=== PATIENT | female | born 1995 | race African-American/Black ===

== ENCOUNTER 2016-07-16 14:17 | Inpatient (IN) | payer OTHER ==
[~2016-07-16] VITALS: Ht 167.6 cm; Wt 96.9 kg
[2016-07-16] MEDS ORDERED: SODIUM CHLORIDE 0.9% 1000ML 1,000 ML IV STA (16:41)
[2016-07-16] MEDS ORDERED: DEXAMETHASONE SOD INJ 4 MG/ML VIAL IV STA (16:41)
[2016-07-16] MEDS ORDERED: AMPICILLIN/SULBACTAM SOD INJ 3,000 MG in SODIUM CHLORIDE 0.9% 100ML 100 ML IV ONE (16:45)
[2016-07-16] MEDS ORDERED: LIDOCAINE/EPINEPHRINE 1% 20 ML VIAL INFIL ONE (17:15)
[2016-07-16 17:56] LABS: BASO % 0.3 %; BASO ABS # 0.04 K/uL (0-0.2); COMPLETE YES; EOS % 0.5 %; HEMATOCRIT 40.5 % (37-47); IG% 0.2 %; LYMPH ABS # 3.28 K/uL (1.2-3.4); MEAN CELL VOLUME 86.7 fL (80-100); MEAN CORPUSCULAR HGB CONC 34.6 g/dl (32-36); MEAN PLATELET VOLUME 10.5 fL (7.4-10.4); MONO % 7.8 %; NEUT % 64.2 %; PLATELET COUNT 302 K/uL (130-400); RED BLOOD COUNT 4.67 M/uL (4.2-5.4); WHITE BLOOD COUNT 12.14 K/uL (4.8-10.8)
[2016-07-16 18:15] LABS: ALT/SGPT 27 U/L (12-78); BLOOD UREA NITROGEN 7 mg/dl (7-18); BUN/CREATININE RATIO 12.5 (10-20); CALCIUM 9.2 mg/dl (8.5-10.1); CARBON DIOXIDE 24 mmol/L (21-32); CHLORIDE 106 mmol/L (98-107); CREATININE 0.56 mg/dl (0.60-1.20); GLUCOSE 72 mg/dl (70-99); POTASSIUM 3.5 mmol/L (3.5-5.1); SODIUM 141 mmol/L (136-145)
[2016-07-16 18:18] LABS: ALB/GLOB RATIO 0.9 (0.9-2); ALKALINE PHOSPHATASE 62 U/L (45-117); AST/SGOT 15 U/L (15-37)
[2016-07-16] MEDS ORDERED: MoRPHine SULFATE 4 MG/ML 1 ML CARP\\VIAL IV STA (18:24)
[2016-07-16] MEDS ORDERED: MoRPHine SULFATE 4 MG/ML 1 ML CARP\\VIAL ONE (18:25)
[2016-07-16] MEDS ORDERED: OPTIRAY 320 IV PRN (19:00)
--- NOTE | 2016-07-16 19:40 | DIAGNOSTIC IMAGING REPORT ---
CT soft tissue neck SOFT TISSUE NECK WITH CLINICAL HISTORY: right peritonsillar abscess, had I D, r/o further abscess peritonsillar abscess TECHNIQUE: Transaxial acquisition with multi axial reformatted images COMPARISON STUDY: None FINDINGS: Severely compromised exam due to the absence of prior imaging studies. Right peritonsillar phlegmon type collection with a small anterior air containing component. This measures 2.5 x 2.2 cm. There is moderate associated posterior hyperplastic change of the adenoids. Airway is mildly displaced to the left with a compromise of lumen of approximately 50-75 primarily of the hypopharyngeal region. Uvula is unremarkable. The glottic and subglottic regions are unremarkable. Pulmonary apices are clear. Moderate to rather significant edematous change of the inferior peritonsillar and hypopharyngeal tissues are also noted. Mild cervical read reactive adenopathy is noted bilaterally. IMPRESSION: 1. Right peritonsillar phlegmon type collection containing a small air component. 2. This displaces the airway to the left and is associated with considerable edematous change of the hypopharyngeal soft tissues surrounding the airway. 3. Airway is compromised by approximately 50-75%, and is again displaced to the left. 4. Moderate reactive edematous change of the adenoids. 5. Glottic and subglottic regions are unremarkable. Electronically signed by: Paul Carranza M.D. 07/16/2016 7:39 PM Dictated Date/Time: 07/16/2016 7:33 PM
[2016-07-16] MEDS ORDERED: PROMETHAZINE HCL INJ 12.5 MG in SODIUM CHLORIDE 0.9% 50ML 50 ML IV PRN (21:00)
[2016-07-16] MEDS ORDERED: DiphenhydrAMINE HCL 50 MG/ML VIAL IV PRN (21:00)
[2016-07-16] MEDS ORDERED: MoRPHine SULFATE 4 MG/ML 1 ML CARP\\VIAL IV PRN (21:00)
[2016-07-16] MEDS ORDERED: LORAZEPAM 2 MG/ML 1 ML VIAL IV PRN (21:00)
[2016-07-16] MEDS ORDERED: ONDANSETRON INJ 2 MG/ML 2 ML VIAL IV PRN (21:00)
[2016-07-16] MEDS ORDERED: PATIENT'S ALLERGY INFO NEEDS ENTERED SCH (21:15)
[2016-07-16] MEDS: ACETAMINOPHEN IV 100 ML IV PRN (22:34)
[2016-07-16] MEDS: MoRPHine SULFATE 2 MG/ML CARP IV PRN (22:34)
[2016-07-16 22:59] VITALS: BP 129/75; PULSE 78; TEMP 37.1; O2SAT 94
[2016-07-16] MEDS ORDERED: LORAZEPAM INJ 0.5 MG in SYRINGE 0.75 ML IV PRN (23:00)
[2016-07-17] MEDS: AMPICILLIN/SULBACTAM SOD INJ 3,000 MG in SODIUM CHLORIDE 0.9% 100ML 100 ML IV SCH ×4 (00:03→17:49)
[2016-07-17] MEDS: DEXAMETHASONE INJ 4 MG in SYRINGE 0 ML IV SCH ×4 (00:03→17:49)
--- NOTE | 2016-07-17 00:15 | History and Physical ---
History & Physical Date & Time of Service: Jul 17, 2016 at 00:07 Chief Complaint: History Of Peritonsillar Abcess Drainage Primary Care Physician: No Doctor, Assigned History of Present Illness Source: patient The patient is a 21-year-old [employer] student who has had 3 days of progressively worsening difficulty with swallowing, sore throat and control of secretions when she is swallowing. In the emergency department she was seen by Dr. Penn from ENT, who performed an I&D of a right peritonsillar abscess, and she was then recommended for admission. She has no known sick exposures, and is generally healthy without significant previous infection history. Social History Smoking Status: Never Smoker Smokeless Tobacco Use: No Alcohol Use: none Drug Use: none Marital Status: single Occupational Status: [employer] student Multi-Drug Resistant Organisms History of MDRO: No Allergies Coded Allergies: No Known Allergies (Unverified , 07/16/16) Home Medications No Active Prescriptions or Reported Meds Review of Systems The patient denies chest pain, palpitations, shortness of breath, cough, lower extremity swelling, vision change, hearing change, weight change, vomiting, abdominal pain, pelvic pain, blood in urine or stool, dysuria, urinary frequency or urgency, lightheadedness, dizziness, headache, memory loss, rash, abnormal bruising or bleeding, imbalance, focal weakness, numbness or tingling in arms or legs, arthralgias or myalgias, back or neck pain, night sweats. The review of systems is otherwise negative other than for that already noted above, and at least 10 systems have been reviewed. Physical Exam Vital Signs Date Time Temp Pulse Resp B/P Pulse Ox O2 Delivery O2 Flow Rate FiO2 07/16/16 22:59 37.1 78 14 129/75 94 Room Air 07/16/16 21:56 78 18 145/82 96 Room Air 07/16/16 20:07 102 18 141/71 97 Room Air 07/16/16 18:51 119 18 143/78 98 Room Air 07/16/16 16:57 109 16 139/74 97 Room Air 07/16/16 14:41 37.0 101 20 138/79 99 Room Air The patient is awake, well-developed and adequately nourished, alert and oriented 3, normocephalic and atraumatic, looks fatigued, lying in bed and in no acute distress. HEENT--PERRL, EOMI, mucous membranes and oropharynx dry. Right peritonsillar area with erythema/induration and hemorrhage post I&D. Neck--supple, no JVD or bruits, thyroid normal, trachea midline, no adenopathy. Heart--normal S1 and S2, no extra beats, no murmurs, rubs or gallops. Lungs--clear bilaterally, no respiratory distress, no accessory muscle use. Abdomen--normal bowel sounds and soft, nontender and nondistended, no hernias or masses, no organomegaly. Extremities--no cyanosis, clubbing or edema. There are good distal pulses b/l. Dermatologic--normal skin turgor, normal color, warm and dry, no abnormal lymph nodes, no rash. Neurologic--cranial nerves II through XII grossly intact, motor and sensory examination normal. Rheumatologic--normal range of motion, nontender, muscles and joints. Psychiatric--normal affect. Diagnostics Laboratory Results Results Past 24 Hours Test 07/16/16 17:30 07/16/16 21:11 Range/Units White Blood Count 12.14 4.8-10.8 K/uL Red Blood Count 4.67 4.2-5.4 M/uL Hemoglobin 14.0 12.0-16.0 g/dL Hematocrit 40.5 37-47 % Mean Corpuscular Volume 86.7 80-100 fL Mean Corpuscular Hemoglobin 30.0 25-34 pg Mean Corpuscular Hemoglobin Concent 34.6 32-36 g/dl Platelet Count 302 130-400 K/uL Mean Platelet Volume 10.5 7.4-10.4 fL Neutrophils (%) (Auto) 64.2 % Lymphocytes (%) (Auto) 27.0 % Monocytes (%) (Auto) 7.8 % Eosinophils (%) (Auto) 0.5 % Basophils (%) (Auto) 0.3 % Neutrophils # (Auto) 7.78 1.4-6.5 K/uL Lymphocytes # (Auto) 3.28 1.2-3.4 K/uL Monocytes # (Auto) 0.95 0.11-0.59 K/uL Eosinophils # (Auto) 0.06 0-0.5 K/uL Basophils # (Auto) 0.04 0-0.2 K/uL RDW Standard Deviation 44.1 36.4-46.3 fL RDW Coefficient of Variation 14.0 11.5-14.5 % Immature Granulocyte % (Auto) 0.2 % Immature Granulocyte # (Auto) 0.03 0.00-0.02 K/uL Sodium Level 141 136-145 mmol/L Potassium Level 3.5 3.5-5.1 mmol/L Chloride Level 106 98-107 mmol/L Carbon Dioxide Level 24 21-32 mmol/L Anion Gap 11.0 3-11 mmol/L Blood Urea Nitrogen 7 7-18 mg/dl Creatinine 0.56 0.60-1.20 mg/dl Est Creatinine Clear Calc Drug Dose 188.0 ml/min Estimated GFR () > 150.0 Estimated GFR (Non- 134.2 BUN/Creatinine Ratio 12.5 10-20 Random Glucose 72 70-99 mg/dl Calcium Level 9.2 8.5-10.1 mg/dl Total Bilirubin 0.5 0.2-1 mg/dl Aspartate Amino Transf (AST/SGOT) 15 15-37 U/L Alanine Aminotransferase (ALT/SGPT) 27 12-78 U/L Alkaline Phosphatase 62 45-117 U/L Total Protein 8.4 6.4-8.2 gm/dl Albumin 4.0 3.4-5.0 gm/dl Globulin 4.4 2.5-4.0 gm/dl Albumin/Globulin Ratio 0.9 0.9-2 Lactic Acid Level 1.1 0.4-2.0 mmol/L Diagnostic Radiology Patient Name: JACOB VASQUEZ Unit Number: [id number] Dictated: 07/16/161932 Transcribed: 07/16/161932 MS Printed Date/Time: [~ rep prt dt]/[~ rep prt tm] [~ rep ct labl] - [~ rep ct ivnm] [facility] [place] [address] Dictated: 07/16/161932 Transcribed: 07/16/161932 MS Printed Date/Time: [~ rep prt dt]/[~ rep prt tm] [~ rep ct labl] - [~ rep ct ivnm] CT soft tissue neck SOFT TISSUE NECK WITH CLINICAL HISTORY: right peritonsillar abscess, had I D, r/o further abscess peritonsillar abscess TECHNIQUE: Transaxial acquisition with multi axial reformatted images COMPARISON STUDY: None FINDINGS: Severely compromised exam due to the absence of prior imaging studies. Right peritonsillar phlegmon type collection with a small anterior air containing component. This measures 2.5 x 2.2 cm. There is moderate associated posterior hyperplastic change of the adenoids. Airway is mildly displaced to the left with a compromise of lumen of approximately 50-75 primarily of the hypopharyngeal region. Uvula is unremarkable. The glottic and subglottic regions are unremarkable. Pulmonary apices are clear. Moderate to rather significant edematous change of the inferior peritonsillar and hypopharyngeal tissues are also noted. Mild cervical read reactive adenopathy is noted bilaterally. IMPRESSION: 1. Right peritonsillar phlegmon type collection containing a small air component. 2. This displaces the airway to the left and is associated with considerable edematous change of the hypopharyngeal soft tissues surrounding the airway. 3. Airway is compromised by approximately 50-75%, and is again displaced to the left. 4. Moderate reactive edematous change of the adenoids. 5. Glottic and subglottic regions are unremarkable. Electronically signed by: Paul Carranza M.D. 07/16/2016 7:39 PM Dictated Date/Time: 07/16/2016 7:33 PM The status of this report is Signed. Draft = Not yet reviewed or approved by Radiologist. Signed = Reviewed and approved by Radiologist. <AttendingPhy></AttendingPhy> <FamilyPhy>No Doctor, Assigned</FamilyPhy> < PrimaryPhy>No Doctor, Assigned</PrimaryPhy> <UnitNumber>[id number]</UnitNumber> <VisitNumber>[id number]</VisitNumber> <PatientName>JACOB VASQUEZ</ PatientName> <DateOfBirth>1995</DateOfBirth> <Location>[facility]</Location> < ServiceDate>07/16/16</ServiceDate> <MNE>ESINDI</MNE> <OrderingPhy>Michelle Devine PA-C</OrderingPhy> <OrderingPhyMNE>f rep ord dr frazier</OrderingPhyMNE> < DictatingPhyMNE>f rep dict dr frazier</DictatingPhyMNE> <CCListMNE>f rep ct karin</ CCListMNE> <AdmittingPhyMNE>f pt admit dr frazier</AdmittingPhyMNE> <AttendingPhyMNE >f pt attend dr frazier</AttendingPhyMNE> <ConsultingPhyMNE>f pt consult dr frazier</ConsultingPhyMNE> <FamilyPhyMNE>f pt fam dr frazier</FamilyPhyMNE> <OtherPhyMNE>f pt other dr frazier</OtherPhyMNE> < PrimaryPhyMNE>f pt prim care dr frazier</PrimaryPhyMNE> <ReferringPhyMNE>f pt referring dr frazier</ReferringPhyMNE> Impression Assessment and Plan Right peritonsillar abscess/phlegmon, status post I&D--patient be admitted to the medical floor. She's received Decadron 10 mg IV in the emergency department and Unasyn 3 g IV. She'll be continued on Decadron 4 mg IV every 6 hours and Unasyn 3 g IV every 6 hours. We'll consult infectious disease to follow patient. Of note, she does have 50-75% airway narrowing, and should have repeat CT scan of soft tissues of neck along with clinical follow-up. She did have I&D performed by Dr. Penn from ENT, who will also be consulted. She' ll be kept nothing by mouth for now, and placed on normal saline with potassium chloride 20 mEq at 100 mils per hour, pantoprazole 40 mg IV daily,and Zofran 4 mg IV every 6 hours when necessary. Level of Care Med/Surg Advanced Directives Existing Advance Directive: No Existing Living Will: No Existing Power of [employer] Consultant: No Resuscitation Status FULL RESUSCITATION VTE Prophylaxis VTE Risk Assessment Done? Y/N: Yes Risk Level: Low Given or contraindicated: SCD's Social Service Consult None Apply
--- NOTE | 2016-07-17 00:51 | EMERGENCY ROOM VISIT NOTE ---
History First contact with patient: 16:36 Chief Complaint: WOUND INFECTION Stated Complaint: HISTORY OF PERITONSILLAR ABCESS DRAINAGE Nursing Triage Summary: Was sent in from [employer], told she has a tonsillar abscess, c/o sore throat and right ear pain. History of Present Illness The patient is a 21 year old female who presents to the Emergency Room with complaints of sore throat which began 3 days ago. The patient reports that she has had a sore throat for the past 3 days but has not been evaluated by anyone. This morning, she woke up and had difficulty breathing. She went to [employer] [facility] and was told she may have a peritonsillar abscess and sent here. The patient does report she had a peritonsillar abscess last year while at home and had an incision and drainage by an ENT there. She reports pain in the right side of her throat with radiation into the right ear. She rates the discomfort a 7/10. She denies any difficulty breathing at this time. She does report difficulty swallowing. She denies any chest pain, shortness of breath, cough, abdominal pain, nausea, vomiting, neck pain or headache. She denies any fevers/chills. She has not been taking any medications at home for her symptoms. Review of Systems A complete 10-point Review of Systems was discussed with the patient, with pertinent positives and negatives listed in the History of Present Illness. All remaining Review of Systems questions can be considered negative unless otherwise specified. Past Medical/Surgical History Medical Problems: (1) Peritonsillar abscess Surgical Problems: (1) History of peritonsillar abscess drainage Social History Smoking Status: Never Smoker Smokeless Tobacco Use: No Drug Use: none Marital Status: single Occupation Status: [employer] student Current/Historical Medications No Active Prescriptions or Reported Meds Allergies Coded Allergies: No Known Allergies (Unverified , 07/16/16) Physical Exam Vital Signs Date Time Temp Pulse Resp B/P Pulse Ox O2 Delivery O2 Flow Rate FiO2 07/16/16 20:07 102 18 141/71 97 Room Air 07/16/16 18:51 119 18 143/78 98 Room Air 07/16/16 16:57 109 16 139/74 97 Room Air 07/16/16 14:41 37.0 101 20 138/79 99 Room Air Pain Rating (0-10): 6.0 Physical Exam VITALS: Vitals are noted on the nurse's note and reviewed by myself. Vital signs stable. GENERAL: This is a 21-year-old female, in no acute distress, nondiaphoretic, well-developed well-nourished. SKIN: The skin was without rashes. EARS: External auditory canals clear, tympanic membranes pearly rodríguez without erythema or effusion bilaterally. EYES: Pupils equal round and reactive to light and accommodation. Conjunctivae without injection, sclerae without icterus. NOSE: Patent, turbinates without inflammation or discharge. No sinus tenderness. MOUTH: Mucous membranes moist. Significant enlargement of the right tonsillar region with uvular deviation, consistent with peritonsillar abscess. Airway patent. NECK: Supple without nuchal rigidity. Anterior cervical lymphadenopathy. HEART: Regular rate and rhythm without murmurs gallops or rubs. LUNGS: Clear to auscultation bilaterally without wheezes, rales or rhonchi. ABDOMEN: Soft, nontender. NEURO: Patient was alert and oriented to person place and time. Medical Decision & Procedures ER Provider Diagnostic Interpretation: CT soft tissue neck SOFT TISSUE NECK WITH CLINICAL HISTORY: right peritonsillar abscess, had I D, r/o further abscess peritonsillar abscess TECHNIQUE: Transaxial acquisition with multi axial reformatted images COMPARISON STUDY: None FINDINGS: Severely compromised exam due to the absence of prior imaging studies. Right peritonsillar phlegmon type collection with a small anterior air containing component. This measures 2.5 x 2.2 cm. There is moderate associated posterior hyperplastic change of the adenoids. Airway is mildly displaced to the left with a compromise of lumen of approximately 50-75 primarily of the hypopharyngeal region. Uvula is unremarkable. The glottic and subglottic regions are unremarkable. Pulmonary apices are clear. Moderate to rather significant edematous change of the inferior peritonsillar and hypopharyngeal tissues are also noted. Mild cervical read reactive adenopathy is noted bilaterally. IMPRESSION: 1. Right peritonsillar phlegmon type collection containing a small air component. 2. This displaces the airway to the left and is associated with considerable edematous change of the hypopharyngeal soft tissues surrounding the airway. 3. Airway is compromised by approximately 50-75%, and is again displaced to the left. 4. Moderate reactive edematous change of the adenoids. 5. Glottic and subglottic regions are unremarkable. Laboratory Results 07/16/16 17:30 Red Blood Count 4.67, Mean Corpuscular Volume 86.7, Mean Corpuscular Hemoglobin 30.0, Mean Corpuscular Hemoglobin Concent 34.6, Mean Platelet Volume 10.5, Neutrophils (%) (Auto) 64.2, Lymphocytes (%) (Auto) 27.0, Monocytes (%) (Auto) 7.8, Eosinophils (%) (Auto) 0.5, Basophils (%) (Auto) 0.3, Neutrophils # (Auto) 7.78, Lymphocytes # (Auto) 3.28, Monocytes # (Auto) 0.95, Eosinophils # (Auto) 0.06, Basophils # (Auto) 0.04 07/16/16 17:30 Test 07/16/16 17:30 White Blood Count 12.14 K/uL (4.8-10.8) Red Blood Count 4.67 M/uL (4.2-5.4) Hemoglobin 14.0 g/dL (12.0-16.0) Hematocrit 40.5 % (37-47) Mean Corpuscular Volume 86.7 fL (80-100) Mean Corpuscular Hemoglobin 30.0 pg (25-34) Mean Corpuscular Hemoglobin Concent 34.6 g/dl (32-36) Platelet Count 302 K/uL (130-400) Mean Platelet Volume 10.5 fL (7.4-10.4) Neutrophils (%) (Auto) 64.2 % Lymphocytes (%) (Auto) 27.0 % Monocytes (%) (Auto) 7.8 % Eosinophils (%) (Auto) 0.5 % Basophils (%) (Auto) 0.3 % Neutrophils # (Auto) 7.78 K/uL (1.4-6.5) Lymphocytes # (Auto) 3.28 K/uL (1.2-3.4) Monocytes # (Auto) 0.95 K/uL (0.11-0.59) Eosinophils # (Auto) 0.06 K/uL (0-0.5) Basophils # (Auto) 0.04 K/uL (0-0.2) RDW Standard Deviation 44.1 fL (36.4-46.3) RDW Coefficient of Variation 14.0 % (11.5-14.5) Immature Granulocyte % (Auto) 0.2 % Immature Granulocyte # (Auto) 0.03 K/uL (0.00-0.02) Anion Gap 11.0 mmol/L (3-11) Est Creatinine Clear Calc Drug Dose 188.0 ml/min Estimated GFR () > 150.0 Estimated GFR (Non- 134.2 BUN/Creatinine Ratio 12.5 (10-20) Calcium Level 9.2 mg/dl (8.5-10.1) Total Bilirubin 0.5 mg/dl (0.2-1) Aspartate Amino Transf (AST/SGOT) 15 U/L (15-37) Alanine Aminotransferase (ALT/SGPT) 27 U/L (12-78) Alkaline Phosphatase 62 U/L (45-117) Total Protein 8.4 gm/dl (6.4-8.2) Albumin 4.0 gm/dl (3.4-5.0) Globulin 4.4 gm/dl (2.5-4.0) Albumin/Globulin Ratio 0.9 (0.9-2) Medications Administered Medications (Trade) Dose Ordered Sig/Polly Route Start Time Stop Time Status Last Admin Dose Admin Ampicillin Sodium/ Sulbactam Sodium 3000 mg/Sodium Chloride 108 ml @ 200 mls/hr ONE ONCE IV 07/16/16 16:45 07/16/16 17:17 DC 07/16/16 17:36 200 MLS/HR Sodium Chloride (Nss 1000ml) 1,000 ml @ 999 mls/hr Q1H1M STAT IV 07/16/16 16:41 07/16/16 17:41 DC 07/16/16 15:30 999 MLS/HR Dexamethasone Sodium Phosphate (Decadron Inj) 10 mg NOW STAT IV 07/16/16 16:41 07/16/16 16:43 DC 07/16/16 17:37 10 MG Lidocaine/ Epinephrine (Xylocaine/Epine 1% Inj) 20 ml ONE ONCE INFIL 07/16/16 17:15 07/16/16 17:16 DC 07/16/16 17:36 20 ML Morphine Sulfate (MoRPHine SULFATE INJ) 3 mg NOW STAT IV 07/16/16 18:24 07/16/16 18:25 DC 07/16/16 18:30 3 MG Medical Decision Differential diagnosis includes strep pharyngitis, viral pharyngitis, peritonsillar abscess, retropharyngeal abscess, among others. The patient was evaluated as above. Labs were drawn and IV access was obtained. Imaging studies were performed and read by radiology as above. The patient was medicated as above. The patient was reassessed multiple times during their stay in the emergency department and remained in stable condition. The patient is a 21-year-old female who presents today complaining of sore throat and possible peritonsillar abscess. Physical exam was consistent with a peritonsillar abscess with uvular deviation. Labs revealed mild leukocytosis of 12,000. The patient was given 3 g Unasyn IV, 10 mg Decadron IV and a 1 L fluid bolus. ENT was consulted. Dr. Carver agreed to evaluate the patient. He did come to the ER and performed incision and drainage. Please see his procedure note. I spoke with him after the procedure, and at that time he was concerned about further abscess and recommended CT of the neck. CT of the neck soft tissue was performed with IV contrast and did show airway compromise. The case was discussed with the [facility] hospitalist, Dr. Padilla, who agreed to evaluate the patient for vision. Impression Primary Impression: Peritonsillar abscess Departure Information Dispostion Still a Patient Condition FAIR Prescriptions No Active Prescriptions or Reported Meds Referrals No Doctor, Assigned (PCP) Forms WORK / SCHOOL INSTRUCTIONS, HOME CARE DOCUMENTATION FORM, IMPORTANT VISIT INFORMATION Patient Instructions [facility]
[2016-07-17 02:08] VITALS: BP 129/75; PULSE 78; TEMP 37.1; O2SAT 94; Ht 167.6 cm; Wt 96.9 kg
--- NOTE | 2016-07-17 07:05 | ENT CONSULTATION ---
DATE OF CONSULTATION: 07/16/2016 CONSULT/PROCEDURE NOTE ATTENDING PHYSICIAN: Socrates Henderson MD THE PERSON REQUESTING CONSULTATION: Michelle Devine PA-C. INDICATION: Suspected right peritonsillar abscess. HISTORY OF PRESENT ILLNESS: This is a 21-year-old roberto at [employer] who has had a history of 1 prior peritonsillar abscess drained in the past. She has had a sore throat for 3 days and has not been on any antibiotics. The decision to come to the Emergency Department was made because she was starting to feel shortness of breath. PAST MEDICAL HISTORY, MEDICATIONS AND ALLERGIES: Please see the patient's ED dictation. PHYSICAL EXAMINATION: GENERAL: The patient was evaluated in room C3. She was awake and alert and cooperative. She had a hot potato voice. HEENT: Examination of the oral cavity showed that she had borderline trismus. There was fullness in the right peritonsillar area. There was minimal deviation of the uvula to the left. I decided there were enough findings to warrant incision and drainage. DESCRIPTION OF RIGHT PERITONSILLAR INCISION AND DRAINAGE: The patient had her oropharynx sprayed with Cetacaine spray and after this, she had an injection with 4 mL of 1% lidocaine, 1:100,000 parts epinephrine into the peritonsillar area. An incision was made with a #11 blade at the superior aspect of the right tonsillar pole. I dissected with a curved tonsillar hemostat superior and also deep to the right tonsil. I also went lateral to make sure I was not missing any pus. There was no egress of pus. As the patient had no pus, I asked Michelle, roxana ADKINS, to order a CT scan of the neck with contrast to make sure that I had not missed an abscess. The CT returned, showing that there was narrowing of the airway but that there was no obvious abscess seen. ASSESSMENT AND PLAN: This patient has a very severe right peritonsillar cellulitis. She has already received Unasyn and IV steroids. I was in agreement with Michelle that this patient needed to be admitted through a hospitalist, to an observation unit where there would be a low nurse to patient ratio for airway observation. Agree that she should continue to be on IV steroids and Unasyn. I will be happy to see this patient again should her airway deteriorate or if there is suspicion for an actual formulation of an abscess.
[2016-07-17 08:04] LABS: BASO % 0.1 %; BASO ABS # 0.01 K/uL (0-0.2); COMPLETE YES; HEMATOCRIT 40.3 % (37-47); IG% 0.2 %; LYMPH % 14.3 %; LYMPH ABS # 1.22 K/uL (1.2-3.4); MEAN CELL VOLUME 85.9 fL (80-100); MEAN CORPUSCULAR HEMOGLOBIN 28.8 pg (25-34); MEAN CORPUSCULAR HGB CONC 33.5 g/dl (32-36); MEAN PLATELET VOLUME 10.2 fL (7.4-10.4); MONO % 1.9 %; NEUT % 83.5 %; PLATELET COUNT 292 K/uL (130-400); RED BLOOD COUNT 4.69 M/uL (4.2-5.4); WHITE BLOOD COUNT 8.54 K/uL (4.8-10.8)
[2016-07-17 08:06] VITALS: BP 102/59; PULSE 71; TEMP 36.6; O2SAT 97
[2016-07-17 08:35] LABS: BLOOD UREA NITROGEN 10 mg/dl (7-18); BUN/CREATININE RATIO 19.2 (10-20); CALCIUM 9.3 mg/dl (8.5-10.1); CARBON DIOXIDE 21 mmol/L (21-32); CHLORIDE 106 mmol/L (98-107); CREATININE 0.51 mg/dl (0.60-1.20); GLUCOSE 111 mg/dl (70-99); MAGNESIUM 2.1 mg/dl (1.8-2.4); SODIUM 141 mmol/L (136-145)
[2016-07-17] MEDS ORDERED: BENZOCAINE/TETRACAIN/BUTAM CAN 200 APPLN/20 GM CAN EXT ONE (08:56)
[2016-07-17] MEDS ORDERED: NURSING VERBAL MED ORDER ONE (09:30)
--- NOTE | 2016-07-17 10:24 | Progress Note ---
Progress Note ID Consult Dictated #[id number] A/P: 1. Right peritonsillar abscess, s/p drainage in ER 07/16 2. Leukocytosis - resolved -Continue unasyn for now, no cultures obtained but clinically improved today -Diet being advanced to clears this am -When able to tolerated po, can change to Augmentin 875mg po bid with food to complete 14 day course -Will follow, thank you
--- NOTE | 2016-07-17 10:33 | Progress Note ---
Subjective Date of Service: Jul 17, 2016. Subjective Pt evaluation today including: conversation w/ patient, physical exam, chart review, lab review, review of studies, conversation w/ organizational research consultant, review of inpatient medication list sore l throat and neck pain is getting better, no spiking fever, feeling hungry and want to eat food Review of Systems Constitutional: + fatigue, + weakness, No chills, No fever, No problem reported , No sweats, No weight loss Eyes: No diplopia, No discharge, No eye pain, No redness, No worsening of vision ENT: + sore throat, No dental problems, No hearing loss, No nasal symptoms, No tinnitus, No trouble swallowing, No unusual epistaxis Respiratory: No cough, No dyspnea at rest, No dyspnea on exertion, No hemoptysis, No shortness of breath, No sputum, No wheezing Cardiac: No PND, No chest pain, No claudication, No edema, No orthopnea, No palpitations Abdomen: No constipation, No diarrhea, No nausea, No pain, No vomiting Musculoskeletal: No calf pain, No joint pain, No muscle pain, No swelling Female : No abnormal vaginal bleeding, No dysuria, No hematuria, No incontinence, No urinary frequency, No vaginal discharge Neurologic: No balance problems, No memory loss, No numbness/tingling, No paralysis, No vertigo, No weakness Psychiatric: No anhedonism, No anxiety, No depression symptoms, No insomnia, No substance abuse Heme: No abnormal bleeding/bruising, No clotting problems, No night sweats, No swollen lymph nodes Endo: No excessive thirst, No excessive urination, No fatigue Skin: No bleeding, No color change, No itch, No new/changing skin lesions, No rash Objective Vital Signs Date Time Temp Pulse Resp B/P Pulse Ox O2 Delivery O2 Flow Rate FiO2 07/17/16 08:06 36.6 71 16 102/59 97 Room Air 07/17/16 08:00 Room Air 07/17/16 02:08 37.1 78 14 129/75 94 Room Air 07/17/16 00:00 Room Air 07/16/16 22:59 37.1 78 14 129/75 94 Room Air 07/16/16 21:56 78 18 145/82 96 Room Air 07/16/16 20:07 102 18 141/71 97 Room Air 07/16/16 18:51 119 18 143/78 98 Room Air 07/16/16 16:57 109 16 139/74 97 Room Air 07/16/16 14:41 37.0 101 20 138/79 99 Room Air Physical Exam General Appearance: WD/WN, no apparent distress, + obese Eyes: normal inspection, PERRL, EOMI, sclerae normal ENT: normal ENT inspection, hearing grossly normal, + pertinent finding ( bilateral tonsil 3,, right tonsil has peritonsil enlargement) Neck: supple, no adenopathy, thyroid normal, no JVD, no carotid bruits, trachea midline Respiratory/Chest: chest non-tender, lungs clear, normal breath sounds, no respiratory distress, no accessory muscle use Cardiovascular: regular rate, rhythm, no edema, no gallop, no JVD, no murmur Abdomen: normal bowel sounds, non tender, soft, no organomegaly, no pulsatile mass Extremities: normal range of motion, non-tender, normal inspection, no pedal edema, no calf tenderness, normal capillary refill, pelvis stable 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, no motor/sensory deficits, alert, normal mood/affect, oriented x 3 Skin: normal color, warm/dry, no rash Lymphatic: no adenopathy Laboratory Results Last 24 Hours Test 07/16/16 17:30 07/16/16 21:11 07/17/16 07:45 White Blood Count 12.14 K/uL 8.54 K/uL Red Blood Count 4.67 M/uL 4.69 M/uL Hemoglobin 14.0 g/dL 13.5 g/dL Hematocrit 40.5 % 40.3 % Mean Corpuscular Volume 86.7 fL 85.9 fL Mean Corpuscular Hemoglobin 30.0 pg 28.8 pg Mean Corpuscular Hemoglobin Concent 34.6 g/dl 33.5 g/dl Platelet Count 302 K/uL 292 K/uL Mean Platelet Volume 10.5 fL 10.2 fL Neutrophils (%) (Auto) 64.2 % 83.5 % Lymphocytes (%) (Auto) 27.0 % 14.3 % Monocytes (%) (Auto) 7.8 % 1.9 % Eosinophils (%) (Auto) 0.5 % 0.0 % Basophils (%) (Auto) 0.3 % 0.1 % Neutrophils # (Auto) 7.78 K/uL 7.13 K/uL Lymphocytes # (Auto) 3.28 K/uL 1.22 K/uL Monocytes # (Auto) 0.95 K/uL 0.16 K/uL Eosinophils # (Auto) 0.06 K/uL 0.00 K/uL Basophils # (Auto) 0.04 K/uL 0.01 K/uL RDW Standard Deviation 44.1 fL 43.4 fL RDW Coefficient of Variation 14.0 % 13.9 % Immature Granulocyte % (Auto) 0.2 % 0.2 % Immature Granulocyte # (Auto) 0.03 K/uL 0.02 K/uL Sodium Level 141 mmol/L 141 mmol/L Potassium Level 3.5 mmol/L 4.0 mmol/L Chloride Level 106 mmol/L 106 mmol/L Carbon Dioxide Level 24 mmol/L 21 mmol/L Anion Gap 11.0 mmol/L 14.0 mmol/L Blood Urea Nitrogen 7 mg/dl 10 mg/dl Creatinine 0.56 mg/dl 0.51 mg/dl Est Creatinine Clear Calc Drug Dose 188.0 ml/min 206.4 ml/min Estimated GFR () > 150.0 > 150.0 Estimated GFR (Non- 134.2 138.4 BUN/Creatinine Ratio 12.5 19.2 Random Glucose 72 mg/dl 111 mg/dl Calcium Level 9.2 mg/dl 9.3 mg/dl Total Bilirubin 0.5 mg/dl Aspartate Amino Transf (AST/SGOT) 15 U/L Alanine Aminotransferase (ALT/SGPT) 27 U/L Alkaline Phosphatase 62 U/L Total Protein 8.4 gm/dl Albumin 4.0 gm/dl Globulin 4.4 gm/dl Albumin/Globulin Ratio 0.9 Lactic Acid Level 1.1 mmol/L Magnesium Level 2.1 mg/dl Assessment and Plan 21-year-old white female admitted with Right peritonsillar abscess/phlegmon, on 07/16/2016 Right peritonsillar abscess/phlegmon: Stable and improving possible status post I&D per ENT she's received Decadron 10 mg IV in the emergency department and Unasyn 3 g IV. Will continued on Decadron 4 mg IV every 6 hours and Unasyn 3 g IV every 6 hours. Of note, she does have 50-75% airway narrowing, will discussed with ENT to repeat CT scan of soft tissues of neck or not had I&D performed by Dr. Penn from ENT, he is follow-up Recommend clear liquid diet because she is improving I believe she need to bilateral tonsillectomy soon, will need to follow up with ENT SCD when in bed, encourage out of bed and walk for DVT prophylaxis GI prophylaxis on Protonix because on steroid Continued [facility] stay due to: multiple IV medications needed Discharge planning: home
[2016-07-17] MEDS: D5W AND 1/2NSS + 20MEQ KCL 1000 ML IV SCH ×2 (10:34→17:41)
[2016-07-17] MEDS: PANTOprazole INJ 40 MG in SYRINGE 0 ML IV SCH (10:35)
[2016-07-17] MEDS ORDERED: PANTOprazole INJ 40 MG in SYRINGE 0 ML IV ONE (11:00)
--- NOTE | 2016-07-17 11:03 | INFECT. DISEASE CONSULTATION ---
DATE OF CONSULTATION: 07/17/2016 DATE OF CONSULTATION: 07/17/2016. REQUESTING PHYSICIAN: Dr. Padilla. HISTORY OF PRESENT ILLNESS: This is a 21-year-old female who was admitted to the hospital yesterday after she had acute onset of respiratory distress and difficulty swallowing. She is a student at [employer] and noticed 3 days ago she had worsening sore throat with pain radiating to the right ear. She also had difficulty swallowing and was not eating much at home. She denies any fevers or chills. She states her sore throat progressed throughout the next 2-3 days and yesterday morning she did notice some subjective fevers and chills at home, but did not take her temperature. This progressed to acute onset of difficulty swallowing. She was seen by [facility] and sent directly to the Emergency Room. In the ER, she did undergo a CAT scan of the neck which showed a left peritonsillar collection. There was airway compromise by 50-75%, decreased movement. She was seen by ENT in the Emergency Room and there was an attempted I\T\D. The patient states significant fluid was aspirated; however I do not see that there were any cultures. She initially had a leukocytosis of 12.1. This has improved to 8.5. She has been afebrile since admission. She was placed on IV Unasyn and IV Solu-Medrol and was admitted to the hospital for further observation. This morning, she states she is feeling much better. She states her breathing and her voice have improved significantly. She also states she is able to swallow without significant pain, but she does still have some pain on the right side of her neck. She currently denies any fevers or chills. She states she is hungry. She denies any nausea, vomiting, diarrhea or abdominal pain. She has no chest pain, cough or shortness of breath. All remaining review of systems are reviewed and are negative except or as noted above. She is tolerating antibiotics without difficulty. She has no past medical history with the exception of a previous peritonsillar abscess which did require drainage 1 year ago. SOCIAL HISTORY: Negative for alcohol use, tobacco use or drug use. She is currently a student at [employer]. ALLERGIES: She has no known drug allergies. FAMILY HISTORY: Noncontributory. CURRENT MEDICATIONS: Include Protonix, potassium, Solu-Medrol, dexamethasone, Unasyn, lorazepam, Benadryl, Zofran, morphine, Tylenol. PHYSICAL EXAMINATION: VITAL SIGNS: She is afebrile, pulse 71, respiratory rate 16, blood pressure 102/59, oxygen saturation is 97% on room air. GENERAL: She is awake, alert and oriented x3. She is in no acute distress. HEAD, EYES, EARS, NOSE, AND THROAT: Mucous membranes are moist. Extraocular muscles are intact. There is no lymphadenopathy cervically however there is tenderness on the right side. She is phonating well. HEART: Regular without murmur. LUNGS: Clear to auscultation bilaterally. ABDOMEN: Soft. EXTREMITIES: There is no lower extremity edema bilaterally. SKIN: Without rash. LABORATORY STUDIES: CBC today reveals a white blood cell count of 8.5, hemoglobin 13.5, hematocrit 40.3 and platelets 292. Chemistry panel reveals a sodium of 141, potassium 4.0, chloride 106, bicarbonate 21, BUN 14, creatinine 0.5, glucose 111. LFTs are within normal limits. There is no micro to follow. CT is reviewed above. ASSESSMENT AND PLAN: 1. Peritonsillar abscess. 2. Leukocytosis resolved. PLAN: At this time she can be continued on IV steroids and IV antibiotics. Her diet is being advanced to clears this morning. When she is able to tolerate a regular diet she should be continued on antibiotics. She can be changed empirically to Augmentin 875 mg twice daily with food to complete a 14-day course. Should she develop any fevers blood cultures can be obtained at that time. Thank you for this consultation.
[2016-07-17] MEDS: MoRPHine SULFATE 2 MG/ML CARP IV PRN (12:18)
[2016-07-17 15:08] VITALS: BP 104/65; PULSE 67; TEMP 36.8; O2SAT 97
[2016-07-17 22:54] VITALS: BP 103/53; PULSE 65; TEMP 36.8; O2SAT 97
[2016-07-18] MEDS: DEXAMETHASONE INJ 4 MG in SYRINGE 0 ML IV SCH ×3 (00:24→11:08)
[2016-07-18] MEDS: AMPICILLIN/SULBACTAM SOD INJ 3,000 MG in SODIUM CHLORIDE 0.9% 100ML 100 ML IV SCH ×4 (00:24→18:21)
[2016-07-18] MEDS: D5W AND 1/2NSS + 20MEQ KCL 1000 ML IV SCH ×3 (01:22→20:48)
[2016-07-18 07:24] LABS: COMPLETE YES; HEMATOCRIT 39.8 % (37-47); IG% 0.3 %; LYMPH % 9.1 %; MEAN CELL VOLUME 87.3 fL (80-100); MEAN CORPUSCULAR HEMOGLOBIN 29.2 pg (25-34); MEAN CORPUSCULAR HGB CONC 33.4 g/dl (32-36); MEAN PLATELET VOLUME 10.5 fL (7.4-10.4); MONO % 6.5 %; NEUT % 84.1 %; PLATELET COUNT 314 K/uL (130-400); RED BLOOD COUNT 4.56 M/uL (4.2-5.4); WHITE BLOOD COUNT 14.32 K/uL (4.8-10.8)
[2016-07-18 07:55] LABS: BLOOD UREA NITROGEN 7 mg/dl (7-18); BUN/CREATININE RATIO 13.1 (10-20); CALCIUM 8.6 mg/dl (8.5-10.1); CARBON DIOXIDE 23 mmol/L (21-32); CHLORIDE 109 mmol/L (98-107); CREATININE 0.55 mg/dl (0.60-1.20); GLUCOSE 138 mg/dl (70-99); MAGNESIUM 2.2 mg/dl (1.8-2.4); POTASSIUM 4.1 mmol/L (3.5-5.1); SODIUM 142 mmol/L (136-145)
[2016-07-18 08:03] VITALS: BP 113/72; PULSE 60; TEMP 36.7; O2SAT 98
[2016-07-18] MEDS: ACETAMINOPHEN IV 100 ML IV PRN ×2 (08:22→17:04)
[2016-07-18] MEDS ORDERED: NURSING VERBAL MED ORDER ONE (09:30)
[2016-07-18] MEDS ORDERED: PANTOprazole INJ 40 MG in SYRINGE 0 ML IV SCH (11:00)
[2016-07-18] MEDS: PANTOprazole INJ 40 MG in SYRINGE 0 ML IV SCH (11:08)
--- NOTE | 2016-07-18 11:57 | Progress Note ---
Subjective Date of Service: Jul 18, 2016. Subjective Pt evaluation today including: conversation w/ patient, conversation w/ family , physical exam, chart review, lab review, review of studies, conversation w/ pension consultant, review of inpatient medication list Voiding: no voiding problems sore throat is better,neck pain is better, Urine output is better, however still deep yellow Tolerate clear liquid diet no fever no chills, Review of Systems Constitutional: + fatigue, + weakness, No chills, No fever, No problem reported , No sweats, No weight loss Eyes: No diplopia, No discharge, No eye pain, No redness, No worsening of vision ENT: + sore throat, No dental problems, No hearing loss, No nasal symptoms, No tinnitus, No trouble swallowing, No unusual epistaxis Respiratory: No cough, No dyspnea at rest, No dyspnea on exertion, No hemoptysis, No shortness of breath, No sputum, No wheezing Cardiac: No PND, No chest pain, No claudication, No edema, No orthopnea, No palpitations Abdomen: No constipation, No diarrhea, No nausea, No pain, No vomiting Musculoskeletal: No calf pain, No joint pain, No muscle pain, No swelling Female : No abnormal vaginal bleeding, No dysuria, No hematuria, No incontinence, No urinary frequency, No vaginal discharge Neurologic: No balance problems, No memory loss, No numbness/tingling, No paralysis, No vertigo, No weakness Psychiatric: No anhedonism, No anxiety, No depression symptoms, No insomnia, No substance abuse Heme: No abnormal bleeding/bruising, No clotting problems, No night sweats, No swollen lymph nodes Endo: No excessive thirst, No excessive urination, No fatigue Skin: No bleeding, No color change, No itch, No new/changing skin lesions, No rash Objective Vital Signs Date Time Temp Pulse Resp B/P Pulse Ox O2 Delivery O2 Flow Rate FiO2 07/18/16 08:09 Room Air 07/18/16 08:03 36.7 60 16 113/72 98 Room Air 07/18/16 00:10 Room Air 07/17/16 22:54 36.8 65 14 103/53 97 Room Air 07/17/16 16:25 Room Air 07/17/16 15:08 36.8 67 16 104/65 97 Room Air Physical Exam General Appearance: WD/WN, no apparent distress Eyes: normal inspection, PERRL, EOMI, sclerae normal ENT: + pertinent finding (bilateral tonsil 2-3, right side tonsil local mild red /swelling, peritonsillar areas in the right is full ) Neck: supple, thyroid normal, no JVD, no carotid bruits, trachea midline Respiratory/Chest: chest non-tender, normal breath sounds, no respiratory distress, no accessory muscle use, + decreased breath sounds Cardiovascular: regular rate, rhythm, no edema, no gallop, no JVD, no murmur Abdomen: normal bowel sounds, non tender, soft, no organomegaly, no pulsatile mass Extremities: normal range of motion, non-tender, normal inspection, no pedal edema, no calf tenderness, normal capillary refill, pelvis stable 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, no motor/sensory deficits, alert, normal mood/affect, oriented x 3 Skin: normal color, warm/dry, no rash Lymphatic: no adenopathy Laboratory Results Last 24 Hours Test 07/18/16 07:04 White Blood Count 14.32 K/uL Red Blood Count 4.56 M/uL Hemoglobin 13.3 g/dL Hematocrit 39.8 % Mean Corpuscular Volume 87.3 fL Mean Corpuscular Hemoglobin 29.2 pg Mean Corpuscular Hemoglobin Concent 33.4 g/dl Platelet Count 314 K/uL Mean Platelet Volume 10.5 fL Neutrophils (%) (Auto) 84.1 % Lymphocytes (%) (Auto) 9.1 % Monocytes (%) (Auto) 6.5 % Eosinophils (%) (Auto) 0.0 % Basophils (%) (Auto) 0.0 % Neutrophils # (Auto) 12.05 K/uL Lymphocytes # (Auto) 1.30 K/uL Monocytes # (Auto) 0.93 K/uL Eosinophils # (Auto) 0.00 K/uL Basophils # (Auto) 0.00 K/uL RDW Standard Deviation 45.0 fL RDW Coefficient of Variation 14.0 % Immature Granulocyte % (Auto) 0.3 % Immature Granulocyte # (Auto) 0.04 K/uL Sodium Level 142 mmol/L Potassium Level 4.1 mmol/L Chloride Level 109 mmol/L Carbon Dioxide Level 23 mmol/L Anion Gap 10.0 mmol/L Blood Urea Nitrogen 7 mg/dl Creatinine 0.55 mg/dl Est Creatinine Clear Calc Drug Dose 191.4 ml/min Estimated GFR () > 150.0 Estimated GFR (Non- 135.0 BUN/Creatinine Ratio 13.1 Random Glucose 138 mg/dl Calcium Level 8.6 mg/dl Magnesium Level 2.2 mg/dl Assessment and Plan 21-year-old white female admitted with Right peritonsillar abscess/phlegmon, on 07/16/2016 Right peritonsillar abscess/phlegmon: Continue Stable and improving ENT saw her in the emergency room /status post I&D per ENT she's received Decadron 10 mg IV in the emergency department and Unasyn 3 g IV. Has been continued on Decadron 4 mg IV every 6 hours and Unasyn 3 g IV every 6 hours. Of note, she does have 50-75% airway narrowing, Because general condition is improving, include pain is better, local swelling is better and tolerated clear diet, I don't feel we need to repeat CT scan of soft tissues of neck had I&D performed by Dr. Carver from ENT, he is follow-up, I'm calling Dr. Carver for further input and discussed about discharge plan Advance diet as tolerated, encourage out of bed and activity Possible switch to oral antibiotic of Augmentin, and then discharged to home Possible discharge tomorrow she need to bilateral tonsillectomy soon, will need to follow up with ENT SCD when in bed, encourage out of bed and walk for DVT prophylaxis GI prophylaxis on Protonix because on steroid Continued [facility] stay due to: multiple IV medications needed Discharge planning: home
--- NOTE | 2016-07-18 12:45 | Progress Note ---
Subjective Date of Service: Jul 18, 2016. Subjective pt out of room, diet advanced to full liquids this am with plans to advance as tolerated. remains afebrile. tolerating abx, remain IV for now, no f/c. wbc increased today but also on IV steroids, no micro to follow. no overnight events. tentative plans for d/c tomorrow on po abx and plan for outpt tonsil removal. Objective Vital Signs Date Time Temp Pulse Resp B/P Pulse Ox O2 Delivery O2 Flow Rate FiO2 07/18/16 08:09 Room Air 07/18/16 08:03 36.7 60 16 113/72 98 Room Air 07/18/16 00:10 Room Air 07/17/16 22:54 36.8 65 14 103/53 97 Room Air 07/17/16 16:25 Room Air 07/17/16 15:08 36.8 67 16 104/65 97 Room Air Laboratory Results Last 24 Hours Test 07/18/16 07:04 White Blood Count 14.32 K/uL Red Blood Count 4.56 M/uL Hemoglobin 13.3 g/dL Hematocrit 39.8 % Mean Corpuscular Volume 87.3 fL Mean Corpuscular Hemoglobin 29.2 pg Mean Corpuscular Hemoglobin Concent 33.4 g/dl Platelet Count 314 K/uL Mean Platelet Volume 10.5 fL Neutrophils (%) (Auto) 84.1 % Lymphocytes (%) (Auto) 9.1 % Monocytes (%) (Auto) 6.5 % Eosinophils (%) (Auto) 0.0 % Basophils (%) (Auto) 0.0 % Neutrophils # (Auto) 12.05 K/uL Lymphocytes # (Auto) 1.30 K/uL Monocytes # (Auto) 0.93 K/uL Eosinophils # (Auto) 0.00 K/uL Basophils # (Auto) 0.00 K/uL RDW Standard Deviation 45.0 fL RDW Coefficient of Variation 14.0 % Immature Granulocyte % (Auto) 0.3 % Immature Granulocyte # (Auto) 0.04 K/uL Sodium Level 142 mmol/L Potassium Level 4.1 mmol/L Chloride Level 109 mmol/L Carbon Dioxide Level 23 mmol/L Anion Gap 10.0 mmol/L Blood Urea Nitrogen 7 mg/dl Creatinine 0.55 mg/dl Est Creatinine Clear Calc Drug Dose 191.4 ml/min Estimated GFR () > 150.0 Estimated GFR (Non- 135.0 BUN/Creatinine Ratio 13.1 Random Glucose 138 mg/dl Calcium Level 8.6 mg/dl Magnesium Level 2.2 mg/dl Assessment and Plan (1) Peritonsillar abscess Assessment & Plan: continue unasyn for now, when able to tolerated regular diet can change to po augmentin bid to complete 14 day course. agree with tonsil removal in future. If she continues to improve, ok for d/c from ID standpoint on po abx. (2) Leukocytosis Assessment & Plan: likely multifactorial, infection + steroids Continued [facility] stay due to: multiple IV medications needed Discharge planning: home
[2016-07-18 15:09] VITALS: BP 138/83; PULSE 77; TEMP 36.8; O2SAT 96
[2016-07-18] MEDS: DEXAMETHASONE 1 MG TAB PO SCH (18:13)
[2016-07-18 23:40] VITALS: BP 117/76; PULSE 65; TEMP 36.7; O2SAT 99
[2016-07-19] MEDS: AMPICILLIN/SULBACTAM SOD INJ 3,000 MG in SODIUM CHLORIDE 0.9% 100ML 100 ML IV SCH ×3 (00:13→11:55)
[2016-07-19] MEDS: DEXAMETHASONE 1 MG TAB PO SCH ×3 (00:14→11:55)
[2016-07-19 06:36] LABS: BASO % 0.1 %; BASO ABS # 0.01 K/uL (0-0.2); COMPLETE YES; HEMATOCRIT 40.1 % (37-47); IG% 0.3 %; LYMPH % 16.1 %; LYMPH ABS # 2.37 K/uL (1.2-3.4); MEAN CELL VOLUME 88.3 fL (80-100); MEAN CORPUSCULAR HEMOGLOBIN 29.5 pg (25-34); MEAN CORPUSCULAR HGB CONC 33.4 g/dl (32-36); MEAN PLATELET VOLUME 10.4 fL (7.4-10.4); MONO % 8.2 %; NEUT % 75.3 %; PLATELET COUNT 336 K/uL (130-400); RED BLOOD COUNT 4.54 M/uL (4.2-5.4); WHITE BLOOD COUNT 14.71 K/uL (4.8-10.8)
[2016-07-19 07:05] LABS: BLOOD UREA NITROGEN 7 mg/dl (7-18); CALCIUM 8.4 mg/dl (8.5-10.1); CARBON DIOXIDE 27 mmol/L (21-32); CHLORIDE 107 mmol/L (98-107); CREATININE 0.61 mg/dl (0.60-1.20); GLUCOSE 97 mg/dl (70-99); MAGNESIUM 2.1 mg/dl (1.8-2.4); POTASSIUM 3.9 mmol/L (3.5-5.1); SODIUM 141 mmol/L (136-145)
[2016-07-19 07:23] VITALS: BP 116/81; PULSE 58; TEMP 36.6; O2SAT 98
[2016-07-19] MEDS: ACETAMINOPHEN IV 100 ML IV PRN (07:34)
[2016-07-19] MEDS: PANTOprazole INJ 40 MG in SYRINGE 0 ML IV SCH (11:04)
[2016-07-19] MEDS: D5W AND 1/2NSS + 20MEQ KCL 1000 ML IV SCH (11:04)
[2016-07-19] MEDS ORDERED: AMOX875T PO (12:50)
[2016-07-19] MEDS ORDERED: OMEP40CA41 PO (12:50)
[2016-07-19] MEDS ORDERED: DEXA2TAB PO (12:50)
[2016-07-19] MEDS ORDERED: LACTCHW3 PO (12:55)
[2016-07-19] MEDS ORDERED: FLUT0.15 NAE (13:01)
--- NOTE | 2016-07-19 13:01 | Discharge Instructions ---
Discharge Instructions Admission Reason for Admission: Tonsillitis & Peritonsillar Abscess Discharge Discharge Diagnosis / Problem: Tonsillitis & Peritonsiallar Abscess - improved. Discharge Goals Goal(s): Decrease discomfort, Improve disease control, Learn about illness, Diagnostic testing, Therapeutic intervention Activity Recommendations Activity Limitations: resume your previous activity . Instructions / Follow-Up Instructions / Follow-Up From Dr. Griffin - 1. For the tonsillitis / peritonsillar abscess take the following - * augmentin 875mg twice daily for 10 days * probiotics (lactinex) 4 chew tabs twice daily for 10 days; this is to help prevent diarrhea from the augmentin * dexamethasone (decadron) 2mg as directed; start this TODAY -- * 07/19/16 - take 1 tab once. * 07/20/16 & 07/21/16 - take 1 tablet three times a day * 07/22/16 & 07/23/16 - take 1 tablet twice a day * 07/24/16 & 07/25/16 - take 1 tablet once a day then stop * take all the steroid with food 2. See Dr. Bello Carver, ENT, at [facility] as scheduled for early this coming week. [address] [address] 3. Take omeprazole 40mg once daily for 2 weeks; this will help prevent stomach upset from the steroids; take the capsule on an empty stomach in the morning. 4. May take [id number] tylenol and/or motrin as needed for pain relief/ discomfort. Just be sure to take the motrin with food to avoid upset stomach. If you take tylenol take no more than 3000mg in 24 hours. 5. Return to [facility] with fever > 100.5 degrees, worsening swallowing, inability to keep liquids down, worsening pain, etc. 6. Speak to the ENT doctor or your family doctor about your chronic, recurrent congestion / colds. Current Hospital Diet Patient's current hospital diet: Full Liquid Diet Discharge Diet Recommended Diet: Regular Diet (However, would avoid "hard" foods that are difficult to swallow. This includes dry foods such as cereal, bread, tough meats, etc. Use gravies, etc to soften food and make it easier to swallow. Plenty of liquids over the next few days. ) Procedures Procedures Performed: Incision & Drainage of Early peritonsillar abscess by Dr. Penn Pending Studies Studies pending at discharge: no School Instructions Return To School: after follow-up Additional Instructions: Eda Sauceda was hospitalized at [facility] from 07/16/16 to 07/19/16. Please excuse her from classes. She can return on Saturday, July 23, 2016. Medical Emergencies . Who to Call and When: Medical Emergencies: If at any time you feel your situation is an emergency, please call 911 immediately. . Non-Emergent Contact Non-Emergency issues call your: Surgeon (Dr. Penn) Call Non-Emergent contact if: temperature is above 100.5, your pain is not controlled, your pain is worsening, your pain is unusual for you, your pain is concerning you, you have any medication questions . . "Provider Documentation" section prepared by Faraz Griffin. VTE Core Measure Inpt VTE Proph given/why not?: SCD's
[2016-07-19 13:04] VITALS: BP 116/81; PULSE 58; TEMP 36.6; O2SAT 98
--- NOTE | 2016-07-19 19:52 | Discharge Summary ---
Discharge Summary Admission Date: Jul 16, 2016 at 20:46 Discharge Date: Jul 19, 2016 Discharge Disposition: Home Principal Diagnosis: right peritonsillar cellulitis/phlegmon Problems/Secondary Diagnoses: h/o peritonsillar abscess Procedures: 1. CT soft tissues neck - IMPRESSION: 1. Right peritonsillar phlegmon type collection containing a small air component. 2. This displaces the airway to the left and is associated with considerable edematous change of the hypopharyngeal soft tissues surrounding the airway. 3. Airway is compromised by approximately 50-75%, and is again displaced to the left. 4. Moderate reactive edematous change of the adenoids. 5. Glottic and subglottic regions are unremarkable. 2. right peritonsillar phlegmon/abscess I/D - Bello Carver MD Consultations: 1. ENT - Bello Carver MD 2. infectious disease - Genoveva Fox, Medication Reconciliation New Medications: Amoxicillin & Pot Clavulanate (Augmentin 875-125 mg) 1 Tab Tab 1 TAB PO BID for 10 Days, #20 TAB 0 Refills Fluticasone Propionate (Nasal) (Flonase Allergy Relief) 50 Mcg/Act Spr 2 SPRAYS LUISA DAILY, #1 INHALER 1 Refill Lactobacillus (Lactinex) Chw 4 TAB PO BID for 10 Days, #20 CHW 0 Refills Omeprazole (Prilosec) 40 Mg Cap 40 MG PO QAM for 14 Days, #14 CAP 0 Refills Dexamethasone (Dexamethasone) 2 Mg Tab 2 MG PO DIRECTED, #13 TAB 0 Refills 07/19: take 1 tab once. 07/20 & 07/21: take 1 tab TID. 07/22 & 07/23: take 1 tab BID. 07/24 & 07/25: take 1 tab QD. Referrals At Discharge Follow up Referrals: Physician Referral - 07/22/16 with Bello Carver M.D. Discharge Exam Physical Exam: General Appearance: no apparent distress, + obese ENT: + pertinent finding (tonsils 2+, cryptic, symmetric, no deviation/no purulent material; mild erythema; incision site from a previous peritonsillar I & D on right without any drainage ) Neck: no JVD Respiratory/Chest: lungs clear, no respiratory distress, no accessory muscle use Cardiovascular: regular rate, rhythm, no gallop, no murmur, normal peripheral pulses Abdomen / GI: normal bowel sounds, non tender, soft, no organomegaly Extremities: no pedal edema Neurologic/Psychiatric: alert, oriented x 3 Hospital Course HISTORY OF PRESENT ILLNESS: The patient is a 21-year-old [employer] student who presented with 3 days of progressively worsening difficulty with swallowing, sore throat and control of secretions. She was thought to have a right-sided peritonsillar abscess. HOSPITAL COURSE: In the ER at time of admission Dr. Bello Penn from ENT performed an I&D of a suspected right peritonsillar abscess. During that procedure there was no expressible purulent material and thus no culture was sent. She was subsequently sent for a STAT CT neck which showed a right-sided phlegmon but no abscess. She was admitted for IV antibiotics and steroids along with fluids. A clear liquid diet was begun and this was advanced slowly. She clinically improved with the above measures. At time of discharge she was able to eat/drink without difficulty and vitals were stable. At discharge the following were recommended - 1. augmentin twice daily for 10 days 2. decadron taper 3. protonix for GI prophylaxis while on the decadron 4. flonase nasal spray for chronic rhinitis 5. modified diet, avoiding hard foods that are difficult to swallow She has scheduled follow-up with Dr. Carver at [facility] within 3 days of discharge. Elective tonsillectomy is being considered as this is the patient's second hospital admission in less than 1 year for peritonsillar abscess/phlegmon. Total Time Spent: Greater than 30 minutes This includes examination of the patient, discharge planning, medication reconciliation, and communication with other providers. Discharge Instructions Please refer to the electronic Patient Visit Report (Discharge Instructions) for additional information. Follow-Up 1. See Dr. Bello Carver, [facility], within 3 days as scheduled Additional Copies To Bello Carver M.D.; Jennifer. Fox D.O.
== END 2016-07-19 13:35 | disposition home or self-care (01) | DRG 134 ==
LOC: ENRESERVDT → ENRESERVTM → C.EDB 14:20 → C.MSN 20:46
PROVIDERS: ADMIT Hospitalist; ATTEND Internal Medicine
PROC: 0C9PXZZ Drainage of Tonsils, External Approach (ICD-10-PCS; principal; 2016-07-16)
DX: J36 Peritonsillar abscess (principal); J31.0 Chronic rhinitis